=== PATIENT | male | born 1975 | race Caucasian/White ===

== ENCOUNTER 2018-01-15 17:07 | Emergency (ER) | payer SELFPAY ==
[~2018-01-15] VITALS: Ht 185.4 cm; Wt 101.2 kg
[2018-01-15 17:15] VITALS: BP 142/80
--- NOTE | 2018-01-15 18:38 | NUR ---
PT AMBULATED TO [facility]
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
--- NOTE | 2018-01-15 18:58 | NUR ---
WENT TO CT SCAN ACCOMPANIED BY TECH.
--- NOTE | 2018-01-15 19:19 | NUR ---
TPt report given to LOBO WADE. Transfer of care at this time.
--- NOTE | 2018-01-15 19:20 | NUR ---
REPORT RECEIVED FROM SHERI AGRAWAL
[2018-01-15] MEDS ORDERED: GLUCAGON 1 MG VIAL IVP ONE (19:55)
[2018-01-15] MEDS ORDERED: NITROGLYCERIN 0.4 MG TAB SL ONE (19:55)
[2018-01-15] MEDS ORDERED: NACL 0.9% 1,000 ML IV ONE (19:55)
[2018-01-15] MEDS ORDERED: MIDAZOLAM 2 MG/2 ML VIAL ONE (20:48)
[2018-01-15] MEDS ORDERED: fentaNYL 0.05 MG/ML VIAL ONE (20:48)
[2018-01-15] MEDS ORDERED: diphenhydrAMINE 50 MG/ML VIAL ONE (20:49)
--- NOTE | 2018-01-15 21:06 | NUR ---
REPORT GIVEN TO BEHZAD FROM GI LAB. PT TAKEN FOR PROCEDURE. PT IN STABLE CONDITION. NO ACUTE DISTRESS NOTED.
[2018-01-15] MEDS ORDERED: fentaNYL 0.05 MG/ML VIAL IVP ONE (21:40)
[2018-01-15] MEDS ORDERED: MIDAZOLAM 2 MG/2 ML VIAL IM ONE (21:40)
--- NOTE | 2018-01-15 21:54 | NUR ---
Pt back from Sx. VSS. HUNTER RANDALL aware. Continue to monitor. Addendum: 01/16/18 at 0030 by [facility] Pt back from surgery. VSS. HUNTER RANDALL aware. Continue to monitor.
--- NOTE | 2018-01-15 23:00 | NUR ---
Pt in bed in poc. VSS. A&Ox4. Pt states readiness to go home. HUNTER RANDALL aware. Continue to monitor. Addendum: 01/16/18 at 0030 by [facility] Pt in bed in comfortable with HOB elevated. VSS. A&Ox4. Pt states readiness to go home. HUNTER RANDALL aware. Continue to monitor.
[2018-01-15 23:56] VITALS: BP 116/84
--- NOTE | 2018-01-15 23:56 | NUR ---
Note mirza in EDM - 01/16/18 at 0026 by DAVID Patient discharged with v/s stable. Written and verbal after care instructions given and explained. Patient alert, oriented and verbalized understanding of instructions. Ambulatory with steady gait. All questions addressed prior to discharge. ID band removed. Patient advised to follow up with PMD. Rx of Ambulatory given. Patient educated on indication of medication including possible reaction and side effects. Opportunity to ask questions provided and answered.
== END 2018-01-15 23:56 | disposition home or self-care (01) ==
LOC: MED 17:07
DX: T18.128A Food in esophagus causing other injury, initial encounter (principal); X58.XXXA Exposure to other specified factors, initial encounter; Y93.89 Activity, other specified; Y92.89 Other specified places as the place of occurrence of the external cause; Y99.8 Other external cause status; Z90.89 Acquired absence of other organs
CPT/HCPCS: 43247; 71250; 74018; 96360; 96361; 99285; J2250; J3010; J7030; J1200; J1610